=== PATIENT | female | born 1995 | race Caucasian/White ===

== ENCOUNTER 2017-06-30 02:13 | Emergency (ER) | payer OTHER ==
[~2017-06-30] VITALS: Ht 160 cm; Wt 118.2 kg
[2017-06-30 02:18] VITALS: BP 130/83; PULSE 82; RESP 20; O2SAT 100
--- NOTE | 2017-06-30 02:57 | ED.REPORT ---
HPI-General Illness Date of Service Jun 30, 2017 ED Provider: Dr. Clemente The pt is a 22 y/o female with no pertinent hx presents to the ED complaining of cough with green sputum for the last two days. The pt initially had a sore throat and was seen at urgent care. She had a negative strep test there. Associated sx include rhinorrhea, hoarseness and chest pain. The pt is a smoker but has not smoked since getting sick. Nursing Notes Stated Complaint: COUGH Chief Complaint: FLU/Cold Symptoms Nursing Notes Reviewed: Yes Allergies: Coded Allergies: Penicillins (Verified Allergy, Unknown, hives, 06/30/17) amoxicillin (Verified Allergy, Unknown, hives, 06/30/17) ibuprofen (Verified Allergy, Unknown, vomitting, 06/30/17) Scheduled PRN Benzonatate (Benzonatate) 200 Mg Capsule 200 MG PO TID PRN PRN For Cough General Time Seen by MD: 02:57 Chief Complaint Cough Hx Obtained From: Patient Arrived By: Walk-in Sudden in Onset?: Yes Onset Occurred: 2 days ago Symptom Duration: Since onset Location: : Chest Quality: Painful Radiation: : Does not radiate Severity: Current: Moderate Severity: Maximum: Moderate Recent Healthcare: Recent doctor visit Past Medical History Past Medical History none reported Past Surgical History Reports: Tonsillectomy Smoking History Current Every Day Smoker Social History Other Social History: Good social support Ambulatory Status Independent Review of Systems Full Review of Systems Ears / Nose / Throat: Reports: Sore throat Respiratory: Reports: Prod cough, green Cardiovascular: Reports: Chest pain Allergy / Immune: Reports: Rhinorrhea Complete sys rev & neg: except as marked. Physical Exam Vital Signs Vital Signs Date Time Temp Pulse Resp B/P Pulse Ox O2 Delivery O2 Flow Rate FiO2 06/30/17 03:32 77 18 98 Room Air 06/30/17 02:18 36.6 82 20 130/83 100 Room Air Initial VS: Reviewed Head / Eyes: Atraumatic, Normocephalic Neck: Supple, Non-tender, Full range of motion Cardiovascular: Regular rate & rhythm, Heart sounds normal, Intact distal pulses Abdomen / GI: Soft, Non-tender Extremities: Vascular intact, Neuro intact, No swelling, No tenderness Skin: Warm, Dry, No cyanosis Neurologic: Alert, Oriented, Nonfocal General/Constitutional: Awake, Alert, Cooperative Distress / Hydration: Positive: Distress mild Respiratory / Chest: Atraumatic, Breath sounds = bilat, No rales, No wheezing Rhonchus and bronchospastic cough Interpretation & Diagnostics X-Ray Chest Interpretation Chest Xray Interpretation: No acute findings View: Portable, AP & lat Interpretation / Wet Read by: Wet read ED physician Re-Eval/Medical Decision Med Decision/Clinical Course 22-year-old smoker presents with cough and green sputum in the morning with clear sputum rest today. Sore throat with cough is her primary concern. X-rays negative for pneumonia. Saturation is good. Improved but not very tolerant of albuterol as well as nebulizer. Home with albuterol puffer spacer. Tessalon Perles given. Follow up with PCP. Source of Hx: Old records Time of Eval: 03:50 Re-Evaluation/Progress Note: Rechecked pt. Discussed imaging results, diagnosis and plan to discharge. Pt understands and agrees with the plan. F/U instruction and RTER warning given. All questions addressed. Counseled Regarding: Diagnosis, Need for follow-up, When/why to return to ED Discharge & Departure Primary Impression: Bronchitis Disposition: Home Discharge Condition All VS Reviewed: Yes Condition: Stable Patient Instructions: Acute Bronchitis (ED), Electronic Cigarettes and Your Health (ED), How to Stop Smoking (ED) Additional Instructions: We do not find pneumonia on your x-ray. Antibiotics are unlikely to help this but likely give you side effects and resistant organisms afterwards. Begin albuterol puffer with spacer two puffs every four hours as needed for cough. Begin Tessalon Perles three times daily for cough. Follow-up with your family doctor in the office. You have made the right decision to quit smoking. Never smoke again. Return if any me issues. Referrals: Christina Johnson (PCP) Scribe Attestation Portions of this note were transcribed by Wendy Temple. I,, personally performed the history, physical exam and medical decision-making;I reviewed and confirmed the accuracy of the information in the transcribed note. Signed by Myrtle Ely. 06/30/17 copies to: Christina Johnson Christopher W MD Jun 30, 2017 02:57 Wendy Temple Jun 30, 2017 03:02
[2017-06-30] MEDS ORDERED: Albuterol 2.5 mg/3 mL Inhalation Solution NEB ONE (03:05)
[2017-06-30] MEDS ORDERED: Albuterol-Ipratropium 3 mL Inhalation Solution NEB ONE (03:05)
[2017-06-30 03:32] VITALS: PULSE 77; RESP 18; O2SAT 98
[2017-06-30] MEDS ORDERED: BENZ200C44 PO (03:48)
[2017-06-30] MEDS ORDERED: Albuterol HFA 200 Puff Inhaler (Vent Pts Only) INHALATION PRN (03:55)
--- NOTE | 2017-06-30 09:03 | DRSVH ---
PROCEDURE: X-RAY CHEST, TWO VIEWS ([id number]) INDICATIONS: green productive cough, no fever, 2 days TECHNIQUE: 2 views of the chest were acquired. COMPARISON: [facility], , CHEST 2VW, 02/03/2015, 14:13. FINDINGS: Surgical changes and devices: None. Lungs and pleura: No pleural effusions or pneumothorax. Lungs are clear. Mediastinum: Mediastinal contours are normal. Heart size is normal. Bones and chest wall: No suspicious bony abnormalities. Soft tissues appear unremarkable. IMPRESSION: No acute cardiopulmonary disease. Dictated by: Lucius Omalley [facility] Interpreted: Fuentes Coffman MD on 06/30/2017 at 9:02 Transcribed by: PAULO on 06/30/2017 at 9:03 Approved by: Fuentes Coffman M.D. on 06/30/2017 at 11:41
== END 2017-06-30 04:16 | disposition home or self-care (01) ==
LOC: SED 02:13
DX: J40 Bronchitis, not specified as acute or chronic (principal); F17.200 Nicotine dependence, unspecified, uncomplicated; Z88.0 Allergy status to penicillin; Z88.8 Allergy status to other drugs, medicaments and biological substances
CPT/HCPCS: 71020; 96372; 99284; J1885; J7613; J7620